=== PATIENT | female | born 1980 | race Caucasian/White ===

== ENCOUNTER 2019-05-01 08:14 | Outpatient (RCR) | payer OTHER, SELFPAY | END 2019-07-30 23:59 | disposition home or self-care (01) | LOC: ANHBWCAUD 08:14 | DX: Z46.1 Encounter for fitting and adjustment of hearing aid (principal) | CPT/HCPCS: 99199 ==

== ENCOUNTER 2021-01-27 13:00 | Outpatient (CLI) | payer OTHER, SELFPAY | END 2021-01-27 13:01 | disposition home or self-care (01) | DX: H90.6 Mixed conductive and sensorineural hearing loss, bilateral (principal); H66.93 Otitis media, unspecified, bilateral | CPT/HCPCS: 92557; 92567 ==

== ENCOUNTER 2021-01-31 11:23 | Emergency (ER) | payer OTHER, SELFPAY ==
--- NOTE | 2021-01-31 11:26 | ED.URI ---
HPI - URI/Sore Throat General Chief Complaint: Upper Respiratory Infection Stated Complaint: Sneezing/Cough Time Seen by Provider: 01/31/21 11:26 Source: patient and RN notes reviewed History of Present Illness HPI Narrative: Patient is a 40-year-old female who presents the urgent care with complaints of sneezing, cough, headache, postnasal drainage, sore throat and voice loss. Patient states that she started the sneezing and the sore throat on and the other symptoms have developed since then. States that she lost her voice last night. Patient has been taking ibuprofen for her symptoms. States that she has had a subjective fever without nausea or vomiting. Patient has not had any known exposure to Covid or strep but does work with the public and has not been Covid vaccinated. No other acute complaints. No acute distress noted. Patient aware of the plan of care. Some parts of this dictation were generated by voice recognition software and may contain typographical and/or grammatical inaccuracies. Related Data Home Medications Medication Instructions Recorded Confirmed albuterol sulfate INHALATION 01/31/21 [id number] INHALATION 01/31/21 [Trelegy Ellipta] methocarbamol mg 01/31/21 Allergies Allergy/AdvReac Type Severity Reaction Status Date / Time coconut Allergy Swelling Verified 01/31/21 11:53 of Lip/Tongue/Throat morphine Allergy Swelling Verified 01/31/21 11:52 of Lip/Tongue/Throat adhesive tape AdvReac Rash Verified 01/31/21 11:53 Review of Systems Review of Systems: CONSTITUTIONAL: Reports of subjective fever EYES: Denies visual changes, redness, or discharge. ENT: Reports of sore throat, rhinorrhea, postnasal drainage and chronic right ear drainage CARDIOVASCULAR: Denies chest pain, palpitations, or edema. RESPIRATORY: Reports a mild cough without dyspnea GASTROINTESTINAL: Denies abdominal pain, nausea, vomiting, or diarrhea. GENITOURINARY: Denies dysuria or hematuria. SKIN: Denies rash or itching. MUSCULOSKELETAL: Denies back pain, joint pain, or myalgia. NEUROLOGIC: Reports of intermittent headaches All other systems reviewed are negative, except as documented in HPI. PMFSH Comments At the time of my signature, I reviewed and agree with the nursing past medical, surgical, social, and family history. There is no relevant family history pertinent to the patient complaint. Exam Narrative: GENERAL: This is a well-nourished, well-developed patient, in no apparent distress. HEAD: normocephalic, atraumatic. EYES: PERRL. Sclera clear/white. Vision is grossly intact. EARS: External ears normal, left auditory canal clear and without drainage, chronic according to patient-mild erythema and yellow drainage to the right auditory canal. TMs normal without perforation. Hearing grossly intact. NOSE: External nose normal with no obvious nasal discharge, mild erythemic nares with clear to yellow rhinorrhea THROAT: Mucous membranes moist, mild erythema to the posterior oropharynx with moderate postnasal drainage. Notable voice loss. NECK: Neck supple, non-tender without lymphadenopathy CARDIOVASCULAR: Regular rate and rhythm without murmurs, gallops, or rubs. RESPIRATORY: Slightly diminished throughout without crackles or wheezes SKIN: warm, intact with no suspicious lesions or rash, good texture and turgor. NEURO: awake, alert, and oriented to person, place and time. There were no obvious focal neurologic abnormalities. EXTREMITIES: No clubbing, cyanosis, or edema. Course Vital Signs Vital signs: Vital Signs Temperature 97.9 F 01/31/21 11:40 Pulse Rate 86 01/31/21 11:40 Respiratory Rate 20 01/31/21 11:40 Blood Pressure 127/88 01/31/21 11:40 Pulse Oximetry 99 01/31/21 11:40 Temperature 97.9 F 01/31/21 11:55 Pulse Rate 86 01/31/21 11:55 Respiratory Rate 20 01/31/21 11:55 Blood Pressure 127/88 01/31/21 11:55 Pulse Oximetry 99
[2021-01-31 11:40] VITALS: BP 127/88; PULSE 86; RESP 20; TEMP 36.6; O2SAT 99
[2021-01-31 11:55] VITALS: BP 127/88; PULSE 86; RESP 20; TEMP 36.6; O2SAT 99
== END 2021-01-31 12:22 | disposition home or self-care (01) ==
PROVIDERS: Emergency Provider Nurse Practitioner Family
DX: J04.0 Acute laryngitis (principal); J02.9 Acute pharyngitis, unspecified; M32.9 Systemic lupus erythematosus, unspecified
CPT/HCPCS: 87081; 87880; 99213; G0463

== ENCOUNTER 2021-03-30 07:58 | Outpatient (RCR) | payer OTHER, SELFPAY | END 2021-06-28 23:59 | disposition home or self-care (01) | LOC: ANHAUDASC 07:58 | DX: Z46.1 Encounter for fitting and adjustment of hearing aid (principal) | CPT/HCPCS: 99199 ==

== ENCOUNTER 2022-01-05 11:37 | Emergency (ER) | payer OTHER, SELFPAY ==
--- NOTE | ~2022-01-05 | XR_ITS ---
EXAMINATION: XR chest 2V DATE: 01/05/2022 12:43 INDICATION: Cough and shortness of breath TECHNIQUE: PA and lateral views of the chest are obtained. COMPARISON: 11/30/2017 FINDINGS: The lungs are free of acute opacities. No pleural effusion or pneumothorax. The cardiomedia stinal silhouette is normal. There is mild thoracic spondylosis. IMPRESSION: 1. No acute cardiopulmonary abnormality. Reviewed, dictated and finalized at location B.
[2022-01-05 11:52] VITALS: BP 122/90; PULSE 94; RESP 16; TEMP 36.6; O2SAT 98
--- NOTE | 2022-01-05 12:44 | ED.URI ---
HPI - URI/Sore Throat General Chief Complaint: Upper Respiratory Infection Stated Complaint: Cough/Shortness of Breath Time Seen by Provider: 01/05/22 12:30 Source: patient, RN notes reviewed and old records reviewed Mode of arrival: ambulatory Limitations: no limitations History of Present Illness HPI Narrative: 41-year-old female who has had 3-week duration of increased cough with shortness of breath with activity some intermittent wheezing and also she is complaining of having some rib muscular type of pain to the right chest wall area from increased cough. Patient has history of asthma and COPD and continues to use tobacco daily. Patient reports that she has used her inhaler, taken Ibuprofen and honey, and applied heat patch to right chest wall area.Patient reports that she took negative home COVID test 2 days ago. MD elicited complaint: cough Pertinent past history: COPD and asthma Pain scale (0-10): 6 Exacerbating factors: exertion and deep breaths Treatments prior to arrival: ibuprofen and other (Honey and inhaler) Related Data Home Medications Medication Instructions Recorded Confirmed albuterol sulfate 90 mcg/actuation See Rx Instructions .Route 01/05/22 01/05/22 aerosol inhaler .COMPLEX PRN sob fluticasone fur. 100 mcg-umeclid 1 inh inhalation DAILY 01/05/22 01/05/22 62.5 mcg-vilant 25 mcg inhalat.powder (Trelegy Ellipta) lisdexamfetamine 30 mg capsule 30 mg PO DAILY 01/05/22 01/05/22 (Vyvanse) Allergies Allergy/AdvReac Type Severity Reaction Status Date / Time coconut Allergy Swelling Verified 01/05/22 12:39 of Lip/Tongue/Throat morphine Allergy Swelling Verified 01/05/22 12:39 of Lip/Tongue/Throat adhesive tape AdvReac Rash Verified 01/05/22 12:39 Review of Systems Review of Systems: CONSTITUTIONAL: Denies fever, chills, or sweats. EYES: Denies visual changes, redness, or discharge. ENT: positive for post nasal rhinorrhea, congestion, no sore throat, or otalgia. CARDIOVASCULAR:positive for right rib area pain along lateral chest area, no palpitations, or edema. RESPIRATORY: positive for cough or dyspnea. GASTROINTESTINAL: Denies abdominal pain, nausea, vomiting, or diarrhea. GENITOURINARY: Denies dysuria or hematuria. SKIN: Denies rash or itching. MUSCULOSKELETAL: Denies back pain, joint pain, or myalgia. NEUROLOGIC: Denies headache, numbness, or weakness. PSYCHIATRIC: Denies anxiety or depression. All systems reviewed & are unremarkable except as noted in HPI and below PMFSH Past Medical History Medical History ADHD (attention deficit hyperactivity disorder) Asthma COVID-20 April 2021 Emphysema lung History of kidney cancer Pneumonia Surgical History Surgical History H/O partial nephrectomy History of cholecystectomy History of endometrial ablation History of placement of ear tubes History of tonsillectomy Social History Social History Smoking packs per day: 0.5 Smoking cigarettes per day: 10.0 Years smoked: 31 Smoking pack-years: 15.50 Smoking status: Current every day smoker Tobacco type: cigarettes Alcohol intake: current Alcohol use details: social Substance use type: does not use Living arrangements: with family Gender identity (if verbalized by the patient): Female Comments At time of signature, agree with nursing past medical, surgical, social and family history. There is no relevant family history pertinent to the presenting complaint Exam Narrative: GENERAL: Well-appearing, well-nourished, and in no acute distress. HEAD: Normocephalic, atraumatic. EYES: PERRLA and EOMI. ENT: Nares with some redness to membranes,post nasal discharge,no epistaxis. Mucous membranes moist.TM's dull with scarring,throat with minimal redness no lesions no tonsils present NECK: Frank
== END 2022-01-05 13:25 | disposition home or self-care (01) ==
PROVIDERS: Emergency Provider Registered Nurse
DX: J44.9 Chronic obstructive pulmonary disease, unspecified (principal); F17.210 Nicotine dependence, cigarettes, uncomplicated; F90.9 Attention-deficit hyperactivity disorder, unspecified type; Z86.16 Personal history of COVID-19; Z85.528 Personal history of other malignant neoplasm of kidney; Z90.5 Acquired absence of kidney
CPT/HCPCS: 71046; 99213; G0463

== ENCOUNTER 2022-05-16 10:06 | Outpatient (CLI) | payer OTHER, SELFPAY | END 2022-05-16 10:07 | disposition home or self-care (01) | LOC: ANHAUDIO 10:07 | DX: H90.6 Mixed conductive and sensorineural hearing loss, bilateral (principal) | CPT/HCPCS: 92557; 92567 ==

== ENCOUNTER 2022-06-27 08:30 | Outpatient (RCR) | payer OTHER, SELFPAY | END 2022-09-04 23:59 | disposition home or self-care (01) | LOC: ANHBWCAUD 08:30 | DX: Z46.1 Encounter for fitting and adjustment of hearing aid (principal) | CPT/HCPCS: 99199; V5261 ==

== ENCOUNTER 2023-04-06 12:05 | Emergency (ER) | payer OTHER, SELFPAY ==
--- NOTE | ~2023-04-06 | XR_ITS ---
XR chest 2V DATE: 04/06/2023 12:44 INDICATION: Diminished breath sounds. Cough. History of emphysema. TECHNIQUE: 2 views COMPARISON: 01/05/2022 2 view chest FINDINGS: Normal heart size. No hilar or mediastinal enlargement. Bilateral hyperinflation. No pulmon caterina infiltrate or consolidation, pleural effusion or pulmonary vascular congestion or pneumothorax. Status post cholecystectomy. IMPRESSION: Bilateral hyperinflation. No active cardiopulmonary disease Reviewed, dictated and finalized at location B. X [employer]
[2023-04-06 12:15] VITALS: BP 142/97; PULSE 86; RESP 16; TEMP 36.9; O2SAT 100
--- NOTE | 2023-04-06 12:50 | ED.GENADULT ---
HPI - General Adult General Chief complaint: Upper Respiratory Infection Stated complaint: cough/chest burning Time Seen by Provider: 04/06/23 12:33 Source: patient, family, RN notes reviewed and old records reviewed Mode of arrival: ambulatory Limitations: no limitations History of Present Illness HPI narrative: 42 year old female accompanied by family member presents to express care with complaints of cough with pain under rib cage radiating to back since for past 3 days. Patient reports that she had upper respiratory infection last week and cough has lingered. Patient has known history of COPD and continues to use tobacco daily.Patient reports that she has tested for COVID which was negative. Patient reports that she has taken Mucinex and also used her inhalers, no fevers noted. MD complaint: cough increase chest brunner and pain under ribs radiating to back. Onset (ago): day(s) (increased symptoms 3 days,URI symptoms last week) Severity: moderate Treatments prior to arrival: other (inhalers, Mucinex) Related Data Home Medications Medication Instructions Recorded Confirmed albuterol sulfate 90 mcg/actuation See Rx Instructions .Route 01/05/22 01/05/22 aerosol inhaler .COMPLEX PRN sob lisdexamfetamine 30 mg capsule 30 mg PO DAILY 01/05/22 01/05/22 (Vyvanse) Allergies Allergy/AdvReac Type Severity Reaction Status Date / Time coconut Allergy Swelling Verified 01/05/22 12:39 of Lip/Tongue/Throat morphine Allergy Swelling Verified 01/05/22 12:39 of Lip/Tongue/Throat adhesive tape AdvReac Rash Verified 01/05/22 12:39 Review of Systems Review of Systems: CONSTITUTIONAL: Denies fever, chills, or sweats. EYES: Denies visual changes, redness, or discharge. ENT: Reports some rhinorrhea, congestion,no sore throat, or otalgia. CARDIOVASCULAR: Denies chest pain, palpitations, or edema. RESPIRATORY: Reports cough or dyspnea.pain along ribs radiating to back with cough GASTROINTESTINAL Denies abdominal pain, nausea, vomiting, or diarrhea. GENITOURINARY: Denies dysuria or hematuria. SKIN: Denies rash or itching. MUSCULOSKELETAL: Denies back pain, joint pain, or myalgia. NEUROLOGIC: Denies headache, numbness, or weakness. PSYCHIATRIC: Denies anxiety or depression. All systems reviewed & are unremarkable except as noted in HPI and below PMFSH Past Medical History Medical History ADHD (attention deficit hyperactivity disorder) Asthma COVID-20 April 2021 Emphysema lung History of kidney cancer Pneumonia Surgical History Surgical History H/O partial nephrectomy History of cholecystectomy History of endometrial ablation History of placement of ear tubes History of tonsillectomy Social History Social History (Updated 04/07/23 @ 11:03 by Yoly Galicia NP) Smoking packs per day: 0.75 Smoking cigarettes per day: 15.0 Years smoked: 31 Smoking pack-years: 23.25 Smoking status: Current every day smoker Tobacco type: cigarettes Alcohol intake: current Alcohol use details: social Substance use type: does not use Living arrangements: with family Gender identity (if verbalized by the patient): Female Comments At time of signature, agree with nursing past medical, surgical, social and family history. There is no relevant family history pertinent to the presenting complaint Exam Narrative: GENERAL: Well-appearing, well-nourished, and in no acute distress. HEAD: Normocephalic, atraumatic. EYES: PERRLA and EOMI. ENT: Nares clear, clear rhinorrhea or epistaxis. Mucous membranes moist.TM's with scar tissue bilaterally chronic ear problems, wears hearing aides, throat pink tonsils absent. NECK: Supple.no lymphadenopathy CHEST: Diminished to auscultation. No acute respiratory distress. no tachypnea, SAO2 100% on room air HEART: Regular rate and rhythm. No murmur hear
== END 2023-04-06 13:12 | disposition home or self-care (01) ==
PROVIDERS: Emergency Provider Registered Nurse
DX: J44.1 Chronic obstructive pulmonary disease with (acute) exacerbation (principal); F17.210 Nicotine dependence, cigarettes, uncomplicated; Z85.528 Personal history of other malignant neoplasm of kidney
CPT/HCPCS: 71046; 99213; G0463

== ENCOUNTER 2023-07-31 17:52 | Emergency (ER) | payer OTHER, SELFPAY ==
--- NOTE | ~2023-07-31 | XR_ITS ---
EXAM: XR ankle RT min 3V DATE: 07/31/2023 18:30 HISTORY: ankle pain . COMPARISON: None available. FINDINGS: Normal mineralization. No fracture or dislocation. No lytic or blastic lesion. Mild tibiot alar and midfoot degenerative change. Mild Achilles enthesopathy. Pes planus. 3 mm radiopaque foreign body projecting over the plantar soft tissues at the level of the second/third metatarsal shafts. No erosion or periosteal change. IMPRESSION: No acute osseous finding in the right ankle. Incidental note of a 3 mm plantar radiopaque foreign body. Reviewed, dictated and finalized at location K.
[2023-07-31 18:00] VITALS: BP 131/99; PULSE 96; RESP 20; TEMP 36.7; O2SAT 100
--- NOTE | 2023-07-31 19:15 | ED.LOWEXIN ---
HPI - Extremity Injury (Lower) General Chief Complaint: Extremity Injury, Lower Stated Complaint: Right Ankle injury Time Seen by Provider: 07/31/23 18:46 Source: patient, RN notes reviewed and old records reviewed Mode of arrival: ambulatory Limitations: no limitations History of Present Illness HPI Narrative: 43-year-old female to Express Care for complaint of left ankle pain with sudden onset yesterday when standing from sitting position. Patient denies any known injury. Patient denies any prior injury. Patient states she has been wrapping at home with Kade wrap some relief. Patient denies numbness, tingling weakness. Related Data Home Medications Medication Instructions Recorded Confirmed albuterol sulfate 90 mcg/actuation See Rx Instructions .Route 01/05/22 07/31/23 aerosol inhaler .COMPLEX PRN sob lisdexamfetamine 30 mg capsule 30 mg PO DAILY 01/05/22 07/31/23 (Vyvanse) fluticasone fur. 100 mcg-umeclid inh inhalation PRN PRN y 07/31/23 62.5 mcg-vilant 25 mcg inhalat.powder (Trelegy Ellipta) Allergies Allergy/AdvReac Type Severity Reaction Status Date / Time coconut Allergy Swelling Verified 07/31/23 18:08 of Lip/Tongue/Throat morphine Allergy Swelling Verified 07/31/23 18:08 of Lip/Tongue/Throat adhesive tape AdvReac Rash Verified 07/31/23 18:08 Review of Systems Review of Systems: All systems reviewed & are unremarkable except as noted in HPI and below Constitutional: Constitutional: Reports no additional constitutional complaints Eyes: Eyes: Reports no additional eye complaints ENT: Reports system reviewed and no additional complaints, except as documented Cardiovascular: Cardiovascular: Reports no additional cardiovascular complaints, Denies chest pain and Denies dyspnea Respiratory: Respiratory: Reports no additional respiratory complaints, Denies cough and Denies dyspnea Musculoskeletal: Musculoskeletal: Reports as per HPI, Reports arthralgias ( Left ankle), Denies numbness and Denies tingling Neurologic: Reports system reviewed and no additional complaints, except as documented Psychiatric: Psychiatric: Reports no additional psychiatric complaints PMFSH Past Medical History Medical History ADHD (attention deficit hyperactivity disorder) Asthma COVID-20 April 2021 Emphysema lung History of kidney cancer Pneumonia Surgical History Surgical History H/O partial nephrectomy History of cholecystectomy History of endometrial ablation History of placement of ear tubes History of tonsillectomy Social History Social History Smoking packs per day: 0.75 Smoking cigarettes per day: 15.0 Years smoked: 31 Smoking pack-years: 23.25 Smoking status: Current every day smoker Tobacco type: cigarettes Alcohol intake: current Alcohol use details: social Substance use type: does not use Living arrangements: with family Gender identity (if verbalized by the patient): Female Comments At the time of my signature, I reviewed and agree with the nursing past medical, surgical, social, and family history. There is no relevant family history pertinent to the patient complaint. Exam Const: General: cooperative, healthy appearing, comfortable, no acute distress, alert and well nourished Nutritional Appearance: well nourished Orientation/consciousness: patient oriented x3 Limitations: no limitations HENMT: Head: normal to inspection Ears: external ears normal Face/Nose/Sinus: Normal external nose present, Normal nares present, normal facial exam, No erythema and No edema Face and sinus: normal facial exam, no erythema and no edema Mouth: Yes Normal oral and palatal mucosa present Eyes: General: appearance normal, both eyes and all related structures Neck: Neck
== END 2023-07-31 19:30 | disposition home or self-care (01) ==
PROVIDERS: Emergency Provider Nurse Practitioner Family
DX: S93.401A Sprain of unspecified ligament of right ankle, initial encounter (principal); S96.911A Strain of unspecified muscle and tendon at ankle and foot level, right foot, initial encounter; X58.XXXA Exposure to other specified factors, initial encounter
CPT/HCPCS: 73610; 99213; G0463